=== PATIENT | female | born 1990 | race Caucasian/White ===

== ENCOUNTER 2022-01-29 16:16 | Emergency (ER) | payer OTHER, SELFPAY ==
[2022-01-29 16:27] VITALS: BP 132/88; PULSE 99; RESP 18; TEMP 36.3; O2SAT 100
[2022-01-29 17:20] LABS: Influenza A QL RT-PCR Negative (Negative); Influenza B QL RT-PCR Negative (Negative); RSV RNA, RT-PCR Negative (Negative); SARS-CoV-2 RNA PCR Negative
--- NOTE | 2022-01-29 19:54 | ED.GENADULT ---
HPI - General Adult General Chief complaint: Unspecified Stated complaint: flu/covid?? cant keep fluids down Time Seen by Provider: 01/29/22 19:43 History of Present Illness HPI narrative: Pt presents with nausea and vomiting for a couple of days. Pt denies fever or diarrhea or abdominal pain. Pt denies exposures. Pt feels lightheaded when she stands. Related Data Allergies Allergy/AdvReac Type Severity Reaction Status Date / Time No Known Allergies Allergy Unverified 06/16/11 20:10 Review of Systems Review of Systems: All systems reviewed & are unremarkable except as noted in HPI and below PMFSH Family History Family History (Updated 10/12/15 @ 23:21 by DOCTOR UNKNOWN) Grandparent Family history of thyroid disease Family history of obesity Family history of mental disorder Depression Asthma Family history of alcoholism Family history of heart disease in male family member before age 55 Diabetes mellitus Family history of migraine headaches Family history of eczema Family history of osteoarthritis Family history of coronary artery disease Family history of malignant neoplasm of urinary bladder Family history of malignant neoplasm Family history of diabetes mellitus in first degree relative Mother Patient's mother is in good health Carcinoma of colon Family history of diabetes mellitus in first degree relative Father Family history of diabetes mellitus in first degree relative Family history of lupus erythematosus Other Family history of malignant neoplasm of breast Family history of malignant neoplasm of ovary Social History Social History Smoking status: Never smoker Alcohol intake: current Exam Const: General: cooperative, no acute distress and alert Orientation/consciousness: patient oriented x3 Limitations: no limitations HENMT: Mouth: Yes Abnormal oral and palatal mucosa present (dry) Eyes: General: appearance normal, both eyes and all related structures Neck: Neck: normal visual inspection and full ROM Resp: Effort & Inspection: normal respiratory effort Auscultation: clear to auscultation bilaterally Cardio: Rate: regular rate Rhythm: regular rhythm GI: Inspection: normal to inspection Percussion: Yes normal to percussion Auscultation: normal bowel sounds Skin: General skin exam: normal color Neuro: General: patient oriented x3 Cranial nerves: Yes CN's II-XII intact bilaterally Speech: normal speech Gait exam (Neuro): Normal gait present Motor exam (neuro): 5/5 motor strength present throughout Extrem: General: normal to inspection and full ROM Psych: Appearance: grossly normal Mental Status: mental status grossly normal Speech and movement: Normal speech and movement present Affect: normal affect Attitude: cooperative Thought process: Normal thought process present Thought content: Yes Normal thought content present Course Vital Signs Vital signs: Vital Signs Temperature 97.4 F L 01/29/22 16:27 Pulse Rate 99 01/29/22 16:27 Respiratory Rate 18 01/29/22 16:27 Blood Pressure 132/88 01/29/22 16:27 Pulse Oximetry 100 01/29/22 16:27 Oxygen Delivery Room Air 01/29/22 16:27 Temperature 97.4 F L 01/29/22 16:27 Pulse Rate 99 01/29/22 16:27 Respiratory Rate 18 01/29/22 16:27 Blood Pressure 132/88 01/29/22 16:27 Pulse Oximetry 100 01/29/22 16:27 Oxygen Delivery Room Air 01/29/22 16:27 Medical Decision Making Vital Signs Vital Signs: Vital Signs Temperature 97.4 F L 01/29/22 16:27 Pulse Rate 99 01/29/22 16:27 Respiratory Rate 18 01/29/22 16:27 Blood Pressure 132/88 01/29/22 16:27 Pulse Oximetry 100 01/29/22 16:27 Oxygen Delivery Room Air 01/29/22 16:27 Temperature 97.4 F L 01/29/22 16:27 Pulse Rate 99 01/29/22 16:27 Respiratory Rate 18 01/29/22 16:27 Blood Pressure 132/88 01/29/22 16:27 Pulse Oximetry 100 01/29/22 16:27 Oxygen Delivery Room Air
[2022-01-29] MEDS: ONDANSETRON INJ 4 MG/2 ML VIAL IV PUSH (20:05)
[2022-01-29] MEDS: SODIUM CHLORIDE 0.9% IV 1,000 ML 999 ML IV CONT (20:05)
== END 2022-01-29 21:39 | disposition home or self-care (01) ==
PROVIDERS: Emergency Medicine; Emergency Provider Emergency Medicine; PCP Nurse Practitioner Adult Health
DX: K52.9 Noninfective gastroenteritis and colitis, unspecified (principal); Z20.822 Contact with and (suspected) exposure to COVID-19
CPT/HCPCS: 87637; 96361; 96374; 99284; J2405; J7030

== ENCOUNTER 2022-09-19 07:23 | Outpatient (CLI) | payer OTHER, SELFPAY ==
[2022-09-19 18:35] LABS: Hematocrit 46.9 % (37.0-47.0); Hemoglobin 14.9 g/dL (12.0-15.0); Mean Corpuscular HGB Conc 31.8 g/dl (32-36); Mean Corpuscular Hemoglobin 31.5 pg (26-34); Mean Corpuscular Volume 99.2 fl (80-100); Mean Platelet Volume 10.1 fl (7.4-10.4); Platelet Count Result 352 k/mm3 (150-375); Red Blood Count 4.73 M/mm3 (4.2-5.4); Red Cell Distribution Width 14.1 % (11.5-14.5); White Blood Count 8.7 K/mm3 (4.5-10.0)
[2022-09-19 18:41] LABS: Alanine Aminotransferase 27 U/L (6-35); Albumin Level 4.4 g/dL (3.5-5.1); Alkaline Phosphatase 70 U/L (38-126); Anion Gap 2 mmol/L (8-16); Aspartate Amino Transferase 71 U/L (14-36); Bilirubin,Total 0.6 mg/dL (0.2-1.3); Blood Urea Nitrogen 11 mg/dL (7-17); Calcium 9.3 mg/dL (8.4-10.2); Carbon Dioxide 34 mmol/L (22-30); Chloride 104 mmol/L (98-107); Cholesterol 163 mg/dL (0-200); Estimated Glomerular Filt Rate > 60; Glucose 97 mg/dL (65-110); HDL Direct 30 mg/dL; Potassium 4.7 mmol/L (3.4-5.0); Sodium 140 mmol/L (137-145); Triglycerides 133 mg/dL (<150)
[2022-09-19 18:55] LABS: LDL Cholesterol Direct 95 mg/dL
[2022-09-19 19:16] LABS: Thyroid Stimulating Hormone 0.732 uIU/mL (0.465-4.680)
[2022-09-19 19:19] LABS: Hemoglobin A1C 5.1 % (<5.7)
[2022-09-23 10:57] LABS: Insulin Level Total 24.8 uIU/mL (<=19.6)
== END 2022-09-19 07:24 | disposition home or self-care (01) ==
LOC: ANHBWCLAB 07:27
PROVIDERS: PCP Nurse Practitioner Adult Health; Visit Provider Nurse Practitioner Adult Health
DX: Z13.0 Encounter for screening for diseases of the blood and blood-forming organs and certain disorders involving the immune mechanism (principal); E66.9 Obesity, unspecified
CPT/HCPCS: 36415; 80053; 80061; 83036; 83525; 84443; 85027

== ENCOUNTER 2023-07-20 15:02 | Outpatient (CLI) | payer OTHER, SELFPAY ==
--- NOTE | ~2023-07-20 | XR_ITS ---
EXAMINATION: XR hand RT 2V, XR hand LT 2V, XR wrist RT 2V, XR wrist LT 2V DATE: 07/20/2023 15:39 INDICATION: Unspecified joint pain at the bilateral hands and wrists. TECHNIQUE: 1. Posteroanterior and lateral views of the left wrist were obtained. 2. Dorsal palmar and lateral views of the left hand were obtained. 3. Posteroanterior and lateral views of the right wrist were obtained. 4. Dorsal palmar and lateral views of the right hand were obtained. COMPARISON: None. FINDINGS: Alignment of the bilateral hands and wrists is normal. No fracture identified. Joint spaces are radhames l. No cortical erosions or periosteal reaction. Bone island along the volar sided cortex of the right second distal phalanx. No focal soft tissue swelling. IMPRESSION: 1. Negative bilateral hand and wrist radiographs. Reviewed, dictated and finalized at location A. IMPRESSION: 1. Negative bilateral hand and wrist radiographs. IMPRESSION: 1. Negative bilateral hand and wrist radiographs. IMPRESSION: 1. Negative bilateral hand and wrist radiographs.
--- NOTE | ~2023-07-20 | XR_ITS ---
EXAMINATION: XR ankle LT 2V, XR foot LT 2V, XR ankle RT 2V, XR foot RT 2V DATE: 07/20/2023 15:39 INDICATION: Multiple joint pain at the bilateral feet and ankles TECHNIQUE: 1. Anteroposterior and lateral view of the left ankle were obtained. 2. Dorsoplantar and lateral views of the left foot were obtained. 3. Anteroposterior and lateral view of the right ankle were obtained. 4. Dorsoplantar, two oblique and lateral views of the right foot were obtained. COMPARISON: None. FINDINGS: Left foot and ankle: Alignment is normal. No fracture. Bone island at the distal left tibial metaphysis. Joint spaces are well maintained. No erosions or periosteal reaction. No ankle joint effusion. Small Achilles and plan tar calcaneal spurs. The soft tissues are unremarkable. Right foot and ankle: Alignment is normal. No fracture. Bone island at the head of the right first proximal phalanx. Joint spaces are well maintained. No erosions or periosteal reaction. No ankle joint effusion. Small enthes opathic ossification at the distal Achilles tendon. The soft tissues are unremarkable. IMPRESSION: 1. Chronic bilateral calcaneal enthesopathy with small left Achilles and plantar calcaneal spurs and small enthesopathic ossicle at the distal right Achilles tendon. Reviewed, dictated and finalized at location A. IMPRESSION: 1. Chronic bilateral calcaneal enthesopathy with small left Achilles and planta r calcaneal spurs and small enthesopathic ossicle at the distal right Achilles tendon. IMPRESSION: 1. Chronic bilateral calcaneal enthesopathy with small left Achilles and planta r calcaneal spurs and small enthesopathic ossicle at the distal right Achilles tendon. IMPRESSION: 1. Chronic bilateral calcaneal enthesopathy with small left Achilles and planta r calcaneal spurs and small enthesopathic ossicle at the distal right Achilles tendon.
--- NOTE | ~2023-07-20 | XR_ITS ---
EXAMINATION: XR sacroiliac joints min 3V DATE: 07/20/2023 15:39 INDICATION: Pain in unspecified joint. TECHNIQUE: 3 views of the sacroiliac joints were obtained. COMPARISON: None. FINDINGS: Bone alignment is normal. No fracture. There is moderate lumbar spondylosis. The sacroiliac joints are normal. There is an intrauterine device in expected position. IMPRESSION: 1. Normal sacroiliac joints. Reviewed, dictated and finalized at location A.
== END 2023-07-20 15:03 ==
PROVIDERS: PCP Internal Medicine; Visit Provider Internal Medicine
DX: M25.50 Pain in unspecified joint (principal); M79.10 Myalgia, unspecified site; R53.81 Other malaise; M77.32 Calcaneal spur, left foot; M77.31 Calcaneal spur, right foot
CPT/HCPCS: 72202; 73100; 73120; 73600; 73620

== ENCOUNTER 2024-05-10 08:44 | Outpatient (CLI) | payer OTHER, SELFPAY ==
--- NOTE | ~2024-05-10 | XR_ITS ---
Right elbow Technique: AP, oblique, and lateral views were obtained. Clinical History: Pain Findings: No acute fracture or dislocation is seen. Osseous alignment is anatomic. Joint spaces are p reserved. There is no displacement of the fat pads, and soft tissues are unremarkable. Impression: Unremarkable radiographs. Reviewed, dictated and finalized at [facility]. ICAL DIETETIC TECHNICIAN Impression: Unremarkable radiographs.
--- OUTSIDE RECORDS SUMMARY | 2024-05-10 09:10 | XMS_ITS | Clinical Summary ---
Author Organization [facility] Address [facility] [place] [address] Care Team Providers Care Supervisor Transcribing Operators Name Role Phone Nigel Schroeder MD Unavailable [phone] None, Provider Primary Care Provider Unavaila ble Allergies Active Allergy Reactions Criticality Noted Date Comments Topiramate Headache,Vomiting Low 09/23/2018 Medications SUMAtriptan 100 MG tablet Take 1 tablet by mouth daily as needed. 2 07/29/2018 Active levonorgestrel 19.5 MG IUD 02/24/2020 Active predniSONE 20 MG tabletIndication s:Acute bilateral low back pain with bilateral sciatica 2 tabs po today, then 2 tabs po qam x 3 days, then 1 tab po qam x 3 days, then 1/2 tab po qam x 4 days. 13 tablet 07/06/2020 Active Active Problems Problem Noted Date Diagnosed Date BMI 45.0-49.9, adult ([facility]) 0 Scoliosis 08/31/2019 Polycystic ovary syndrome 08/31/2019 Osteoarthritis of back 08/31/2019 History of degenerative disc disease 08/31/2019 Bulging lumbar disc 08/31/2019 Disc narrowing 08/31/2019 External hemorrhoids 04/20/2019 Assessment & Plan (04/20/2019 2:39 PM TRIBAL DELEGATE): Will try hydrocortisone, lidocaine cream, con't sitz bath. If no improvement will refer to GI/gen surg Fibrous dysplasia (monostotic), unspecified site 08/18/2018 Overview (08/18/2018): Of Skull per Dr. Roca Obesity, unspecified classif ication, unspecified obesity type, unspecified whether serious comorbidity present 06/23/2018 Excessive thirst 06/23/2018 Diaphoresis 06/23/2018 Anxiety 05/19/2018 Assessment & Plan (03/25/2019 1:07 PM TRIBAL DELEGATE): Will try increasing the amitriptyline as has helped and no side effects. If no improvement she is to let me know and we can consider adding buspar. Also discussed seeing therapist and trying mindfulness as coping mechanism for stress Assessment & Plan (01/04/2019 9:43 AM CDT): Some improvement but not at goal. Will try inc to 25mg. She has had side effects with other SSRI/SNRIs so will try optimizing this. Assessment & Plan (12/01/2018 1:20 PM CDT): Did not do well with sertraline. Will try amitriptyline for both migraines and anxiety. Assessment & Plan (05/19/2018 4:27 PM TRIBAL DELEGATE): Try sertraline daily as had only been using PRN. Will FU in 1 month. Polyostotic fibrous dysplasia (HHS/HCC) Assessment & Plan (05/19/2018 4:29 PM TRIBAL DELEGATE): Reports not [place] syndorm because no cafe au lait spots. Never has gotten period because started on progesterone shots to help with high bone density. Reports she has supposed to have FU dexas or other scans but has not seen specialist since 18. Was previously seeing a neurologist. Chronic migraine Assessment & Plan (01/04/2019 9:43 AM CDT): Much better control. Will inc to 25mg though more for anxiety Assessment & Plan (12/01/2018 1:16 PM CDT): Will try amitriptyline low dose as may help with both anxiety and migraines. New referral placed for neuro to see if can find someone in network Resolved Problems Problem Noted Date Diagnosed Date Resolved Date Serotonin withdrawal syndrom e, initial encounter 06/25/2018 07/05/2020 Immunizations Name Administration Dates Next Due Fluzone Adult - >Age 3 (Prefilled Syringe) 01/14 Influenza Adult (Generic) 01/12/2021 MODERNA COVID-19 (12+) MRNA, LNP-S, PF, 100 MCG/ 0.5 ML DOSE 04/11/2020,03/14/2020 Family History Medical History Relation Comments Arthritis Father degenerative disc disease Father osteoarthristis Father sleep apnea Father Arthritis Maternal Grandfather Diabetes Maternal Grandfather Hypertension Maternal Grandfather Arthritis Maternal Grandmother Cancer Maternal Grandmother mouth and m elanoma Depression Maternal Grandmother Diabetes Maternal Grandmother Hypertension Maternal Grandmother Stroke Maternal Grandmother Arthritis Mother Diabetes Mother Lupus Mother systematic eryth ematosis cervical dysplasia Mother osterarthritis Mother pcos Mother sjorgen Mother Alcohol Abuse Paternal Grandfather Arthritis Paternal Grandfather Arthritis Paternal Grandmother Heart Disease Paternal Grandmother mitrial mehdi ve prolapse Relation Status Comments Brother Alive Father Alive Maternal Grandfather Alive Maternal Grandmother (Age 68) Mother Alive Paternal Grandfather Alive Paternal Grandmother Alive Social History Tobacco Use Types Packs/Day Years Used Date Smoking Tobacco: Never Smokeless Tobacco: Never Tobacco Cessation:Counseling Given: Yes Alcohol Use Standard Drinks/Week Comments Yes 0 (1 standard drink = 0.6 oz pur e alcohol) social AUDIT-C Answer Date Recorded Frequency of Alcohol Consumption 2-4 times a thu10/18/2018 Average Number of Drinks Not on file 019 Frequency of Binge Drinking Not on file 0807/2018 PHQ-2 Answer Date Recorded PHQ-2 Score - If the patient scores above 3, please move on to questions 3-9 0 09/28/2019 Education Answer Date Recorded What is the highest level of school you have completed or the highest degree you have received? 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 Not on file Not on file Not on file Last Filed Vital Signs Vital Sign Reading Time Taken Comments Blood Pressure 108/80 07/06/2020 11:38 AM CDT Pulse 101 07/06/2020 11:38 AM CDT Temperature 36.9 C (98.5 F) 07/06/2020 11:38 AM CDT Respiratory Rate 20 07/06/2020 11:38 AM CDT Oxygen Saturation 98% 07/06/2020 11:38 AM CDT Inhaled Oxygen Concentration - - Weight 128.8 kg (284 lb) 07/06/2020 11:38 AM CDT Height 162.6 cm (5' 4 ) 07/06/2020 11:38 AM CDT Body Mass Index 48.75 07/06/2020 11:38 AM CDT Plan of Treatment Health Maintenance Due Date Last Done Comments Cervical Cancer Screening Pa p Smear (Age 30 to 64) Every 3 Years 1990 Annual Physical 1993 Hepatitis C 2008 DTaP, Tdap and Td Vaccines ( 1 - Tdap) 2009 Hepatitis B Vaccines (1 of 3 - 19+ 3-dose series) 2009 Cervical Cancer Screening Pa p with HPV Testing (Age 30 to 64) Every 5 Years 2020 Cervical Cancer Screening wi HPV 2020 COVID-19 Vaccine (2023-2 5 season) 2023 01/12/2021, 04/11/2020, 03/14/2020 Influenza Adult (#1) 2023 01/12/2021, 01/14/2017 HPV Vaccines Aged Out No longer eligi ble based on patient's age to complete this topic Meningococcal B Vaccine Aged Out No l onger eligible based on patient's age to complete this topic Meningococcal Vaccine Aged Out No michael saul eligible based on patient's age to complete this topic Pneumococcal Vaccine: Pediatrics (0 to 5 Years) and At-Risk Patients (6 to 64 Years) Aged Out No longer eligible b ased on patient's age to complete this topic RSV Immunizations Under 20 Months Aged Out No longer eligible b ased on patient's age to complete this topic Insurance [facility] Care Teams Supervisor Transcribing Operators Relationship Specialty Start Date End Date None, Provider, PCP - General UNKNOWN PHYSICIAN SPECIALTY 02/13/23 Nigel Schroeder MD Three [facility]. [address] [address] [employer] Sr Engineer CARDIOVASCULAR DISEASE 09/03/18
--- OUTSIDE RECORDS SUMMARY | 2024-05-10 09:10 | XMS_ITS | Encounter Summary ---
Author Organization [facility] Address [address] [place] [address] Care Team Providers Care Straightening Roll Operator Name Role Phone Nigel Schroeder MD Unavailable [phone] Ailyn Brice MD Primary Care Provider [phone] None, Provider Primary Care Provider Unavaila ble Encounter Details Date Type Department Care Team (Late st Contact Info) Description 07/30/2020 MyChart Message Enc [facility] W[facility] [address] [place] [address] [place] [address] [place] [address] RE: Follow Up/Update Social History Tobacco Use Types Packs/Day Years Used Date Smoking Tobacco: Never Smokeless Tobacco: Never Alcohol Use Standard Drinks/Week Comments Yes 0 (1 standard drink = 0.6 oz pur e alcohol) social AUDIT-C Answer Date Recorded Frequency of Alcohol Consumption 2-4 times a thu10/18/2018 Average Number of Drinks Not on file 019 Frequency of Binge Drinking Not on file 07/2018 PHQ-2 Answer Date Recorded PHQ-2 Score - [...] Sex Assigned at Female 01/24/2019 9:38 AM ARCHEOLOGIST CLASSICAL Legal Sex Female 10:22 PM ARCHEOLOGIST CLASSICAL Gender Identity Female 01/24/2019 9:38 AM ARCHEOLOGIST CLASSICAL Sexual Orientation Straight 01/24/2019 9: 38 AM ARCHEOLOGIST CLASSICAL 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 No / Unsure 07/06/2020 11:24 AM CDT documented as of this encounter Progress Notes * Nikki Hdez MA - 07/30/2020 3:29 PM CDT Please advise documented in this encounter Plan of Treatment Not on file documented as of this encounter Visit Diagnoses Not on filedocumented in this encounter Care Teams Straightening Roll Operator Relationship Specialty Start Date End Date Ailyn Brice MD [facility]. [address] [address] PCP - General INTERNAL MEDICINE 08/31/19 02/12/23 None, Afshan, PCP - General UNKNOWN PHYSICIAN SPECIALTY 02/13/23 Nigel Schroeder MD [facility]. [facility] [address] [place] [address] [place] [employer] Sales Director CARDIOVASCULAR DISEASE 09/03/18 documented as of this encounter
--- OUTSIDE RECORDS SUMMARY | 2024-05-10 09:10 | XMS_ITS | Encounter Summary ---
Author Organization [facility] Address [address] [place], [place] [id number] Care Team Providers Care Reeler Operator Name Role Phone Nigel Schroeder MD Unavailable [phone] Ailyn Brice MD Primary Care Provider [phone] None, Provider MD Primary Care Provider Unavaila ble Encounter Details Date Type Department Care Team (Late st Contact Info) Description 07/27/2020 MyChart Message Enc [facility] Family & Internal Medicine [facility] [id number] [place] [phone] Pollo Klein MD [address] [address] RE: Follow Up/Update Social History Tobacco Use [...] Sex Assigned at Female 01/24/2019 9:38 AM DOCK SUPERINTENDENT Legal Sex Female 10:22 PM DOCK SUPERINTENDENT Gender Identity Female 01/24/2019 9:38 AM DOCK SUPERINTENDENT Sexual Orientation Straight 01/24/2019 9: 38 AM DOCK SUPERINTENDENT Occupation Industry Job Start Date Job End Date [place] Not on file Not on file Not on file COVID-19 Exposure Response Date Recorded In the last month, have you been in contact with someone who was confirmed or suspected to have Coronavirus / COVID-19? No / Unsure 07/06/2020 11:24 AM CDT documented as of this encounter Progress Notes * Nikki Hdez MA - 07/30/2020 2:31 PM CDT Please see message from patient * Montserrat Lowe RN - 07/30/2020 2:10 PM CDT Please have Dr. Robertson advise. * Pollo Klein MD - 07/30/2020 9:53 AM CDT I recommend patient consult her PCP, as she may benefit from a round of physical therapy. * Montserrat Lowe RN - 07/30/2020 9:07 AM CDT Please advise. documented in this encounter Plan of Treatment Not on file documented as of this encounter Visit Diagnoses Not on filedocumented in this encounter Care Teams Reeler Operator Relationship Specialty Start Date End Date Ailyn Brice MD [address] [address] PCP - General INTERNAL MEDICINE 08/31/19 02/12/23 None, Provider, PCP - General UNKNOWN PHYSICIAN SPECIALTY 02/13/23 Nigel Schroeder MD Three [facility]. [address] [address] [place] Head Scorer CARDIOVASCULAR DISEASE 09/03/18 documented as of this encounter
--- OUTSIDE RECORDS SUMMARY | 2024-05-10 09:10 | XMS_ITS | Encounter Summary ---
Author Organization [facility] Address [address] [place] [address] Care Team Providers Care Ict Development Manager Name Role Phone Nigel Schroeder MD Unavailable [phone] Ailyn Brice MD Primary Care Provider [phone] None, Provider Primary Care Provider Unavaila ble Encounter Details Date Type Department Care Team (Late st Contact Info) Description 09/18/2021 [employer] Message [place] [facility] [employer] Provider Patient Amendment Request Social History Tobacco Use Types Packs/Day Years [...] Sex Assigned at Female 01/24/2019 9:38 AM BIOLOGY LECTURER Legal Sex Female 10:22 PM BIOLOGY LECTURER Gender Identity Female 01/24/2019 9:38 AM BIOLOGY LECTURER Sexual Orientation Straight 01/24/2019 9: 38 AM BIOLOGY LECTURER 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 [address] [address] PCP - General INTERNAL MEDICINE 08/31/19 02/12/23 None, Provider, PCP - General UNKNOWN PHYSICIAN SPECIALTY 02/13/23 Nigel Schroeder MD Three [facility]. [address] [address] [place] Enrober Tender CARDIOVASCULAR DISEASE 09/03/18 documented as of this encounter
--- OUTSIDE RECORDS SUMMARY | 2024-05-10 09:10 | XMS_ITS | Encounter Summary ---
Author Organization [facility] Address [address] [place] [address] Care Team Providers Care Ese Teacher Name Role Phone Denita Aguila MD Primary Care Provider Unavailab Nigel Zabala MD Unavailable [phone] Ailyn Brice MD Primary Care Provider [phone] None, Provider Primary Care Provider Unavaila ble Encounter Details Date Type Department Care Team (Late st Contact Info) Description 10/06/2018 Hospital Orders Only [facility] Cardiopulmonary Services [address] [place] [address] Nigel Schroeder MD Three [facility]. [place] [address] [place] [address] Social History Tobacco Use Types Packs/Day Years Used Date Smoking Tobacco: Never Smokeless Tobacco: Never Alcohol Use Standard Drinks/Week Comments Yes 0 (1 standard drink = 0.6 oz pur e alcohol) social Comments No Sex and Gender Information Value Date Recorded Sex Assigned at Female 01/24/2019 9:38 AM DOCUMENT ADVISOR Legal Sex Female 10:22 PM DOCUMENT ADVISOR Gender Identity Female 01/24/2019 9:38 AM DOCUMENT ADVISOR Sexual Orientation Straight 01/24/2019 9: 38 AM DOCUMENT ADVISOR documented as of this encounter Plan of Treatment Not on file documented as of this encounter Visit Diagnoses Not on filedocumented in this encounter Care Teams Ese Teacher Relationship Specialty Start Date End Date Denita Aguila MD PCP - General INTERNAL MEDICINE 05/19/18 08/30/19 Ailyn Brice MD Three [facility]. [address] [address] PCP - General INTERNAL MEDICINE 08/31/19 02/12/23 None, Provider, PCP - General UNKNOWN PHYSICIAN SPECIALTY 02/13/23 [facility] [address] [address] [place] Tech Brazer Tester CARDIOVASCULAR DISEASE 09/03/18 documented as of this encounter
== END 2024-05-10 08:45 | disposition home or self-care (01) ==
LOC: CHSIMG 08:46
PROVIDERS: PCP Nurse Practitioner Adult Health; Visit Provider Orthopaedic Surgery
DX: M25.521 Pain in right elbow (principal)
CPT/HCPCS: 73080

== ENCOUNTER 2025-03-04 08:05 | Outpatient (CLI) | payer OTHER, SELFPAY ==
--- OUTSIDE RECORDS SUMMARY | 2024-10-20 10:30 | XMS_ITS ---
Author Organization [facility] Address [address], [place] [address] Care Team Providers Care Medical/Surgery Registered Nurse Name Role Phone Alma Fernandez Unavailable [phone] Allergies Allergen (clinical drug ingredient) Drug/Non Drug Allergy documented on EMR Reaction Allergy Type Onset Date Status metoprolol Toprol XL Unknown Drug Allergy Active Medications Medication SIG (Take, Route, Frequency, Duration) Notes Start Date End Date Status Cimzia (2 Syringe) 200 MG/ML Inject the contents of TWO prefilled syringes (400 mg) subcutaneously in the abdomen or thigh, rotating sites every 4 weeks; Duration: 84 days 10/21/2024 01/13/2025 Active Cimzia (2 Syringe) 200 MG/ML inject 2 mL Subcutaneous every 4 weeks Active Zepbound 2.5 MG/0.5ML 0.5 mL Subcutaneous weekly Active Ubrelvy 100 MG 1 tablet as needed, may take second dose at least 2 hours after first dose up to 2 tablets per day as needed Orally Once a day Active CeleBREX 200 MG 1 capsule as needed Orally Twice daily Active Social History Tobacco Use: Social History Observation Description Date Details (start date - stop date) Never Smoker NA - NA Sex Assigned At : Social History Observation Description Sex Assigned At Unknown Tobacco Control (Standard) Question Answer Notes Tobacco use: Nonsmoker Problems Problem Type SNOMED Code ICD Code Onset Dates Problem Status W/U Status Risk Notes Problem Rheumatoid arthritis (57244802) Rheumatoid arthritis, involving unspecified site, unspecified whether rheumatoid factor present (M06.9) Active confirmed Problem Rheumatoid arthritis (90367633) Rheumatoid arthritis (M06.9) Active confirmed Problem Ankylosing spondylitis (5664158) Ankylosing spondylitis (M45.9) Active confirmed Problem Plantar fasciitis (084250739) Plantar fasciitis (M72.2) Active confirmed Problem Degenerative joint disease (659538357) Degenerative joint disease (M19.90) Active confirmed Problem Osteoarthritis (008149075) Osteoarthritis (M19.90) Active confirmed Problem Hypertension (77808191) Hypertension (I10) Active confirmed Problem migraine (disorder) (82541285) Migraines (G43.909) Active confirmed Vital Signs Height 64 in 10/20/2024 Weight 222 lbs 10/20/2024 BMI 38.1 kg/m2 10/20/2024 Height-cm 162.56 cm 10/20/2024 Weight-kg 100.7 kg 10/20/2024 Encounters Encounter Location Date Provider Diagnosis [address] [place], [place] [id number] 10/20/2024 Alma Fernandez Rheumatoid arthritis, involving unspecified site, unspecified whether rheumatoid factor present M06.9 ; Other penitentiary (current) drug therapy Z79.899 and Routine health maintenance Z00.00 Assessments Encounter Date Diagnosis (ICD Code) Assessment Notes Treatment Notes Treatment Clinical Notes Section Notes 10/20/2024 Rheumatoid arthritis, involving unspecified site, unspecified whether rheumatoid factor present (ICD-10 - M06.9) Ms. Davies is a 34 year-old female with rheumatoid arthritis, currently managed by Dr. Cuadra. At this time, patient will continue Cimzia. Patient will be monitored penitentiary for symptom control and side effects. SCREENING: Baseline CDAI: 14 Current CDAI: 4 LABS: QuantiFERON-TB Gold (08/01/24): Negative Hepatitis B Surface Antigen (07/18/23): NR Rheumatoid arthritis is chronic in nature with periods of remission and flares. Flares can be triggered by stress, infections, certain medications, and alcohol. Cimzia risks include worsening of disease, immunosuppressio n, allergic reactions and infections. The patient understands that monitoring is required including a PPD at baseline and must alert us or the primary physician if symptoms of infection or other concerning signs are noted. 10/20/2024 Other exterminator (current) drug therapy (ICD-10 - Z79.899) When on high-risk medications, patient must be vigilant about any new symptoms and understand the risks and side effects of their treatment. Biologic/small molecule medications can have significant side effects that may require blood test monitoring on a regular basis. Patient to contact providers for fever, chills, night sweats, malaise, abdominal pain, weakness, fatigue, headaches, infections, difficulty breathing or persistent cough, new skin lesions, or other unusual symptoms. 10/20/2024 Routine health maintenance (ICD-10 - Z00.00) https://www.cdc. gov/vaccines/odette edules/downloads /adult/adult-com bined-schedule.p df Plan Of Treatment Medication Medication Name Sig Start Date Stop Date Notes Cimzia (2 Syringe) 200 MG/ML Inject the contents of TWO prefilled syringes (400 mg) subcutaneously in the abdomen or thigh, rotating sites every 4 weeks; Duration: 84 days 10/21/2024 01/13/2025 Treatment Notes Assessment Notes Rheumatoid arthritis, involv ing unspecified site, unspecified whether rheumatoid factor present Ms. Davies is a 34 year-old female with rheumatoid arthritis, currently managed by Dr. Cuadra. At this time, patient will continue Cimzia. Patient will be monitored penitentiary for symptom control and side effects. SCREENING: Baseline CDAI: 14 Current CDAI: 4 LABS: QuantiFERON-TB Gold (08/01/24): Negative Hepatitis B Surface Antigen (07/18/23): NR Rheumatoid arthritis is chronic in nature with periods of remission and flares. Flares can be triggered by stress, infections, certain medications, and alcohol. Cimzia risks include worsening of disease, immunosuppression, allergic reactions and infections. The patient understands that monitoring is required including a PPD at baseline and must alert us or the primary physician if symptoms of infection or other concerning signs are noted. Other penitentiary (current) drug therapy W hen on high-risk medications, patient must be vigilant about any new symptoms and understand the risks and side effects of their treatment. Biologic/small molecule medications can have significant side effects that may require blood test monitoring on a regular basis. Patient to contact providers for fever, chills, night sweats, malaise, abdominal pain, weakness, fatigue, headaches, infections, difficulty breathing or persistent cough, new skin lesions, or other unusual symptoms. Routine health maintenance https://www.c dc.gov/vaccines/schedules/ramona nloads/adult/wldme-jldqwggw-ybkautee.pdf Progress Notes * KHADIJAH DAVIESHELDOB:[birth year] (34 yo F)Acc No.[id number]:10/20/2024 Patient: EDU PERDOMO Provider: Karri Fernandez :1990 A ge:34 Y S ex:Female Date:10/20/2024 Address:[address] [place] [address] Subjective: * Chief Complaints: * * HPI: T elemedicine: Ms. Davies is a 34-year-old female with rheumatoid arthritis, currently managed by Dr. Cuadra. Patient's past medical history is notable for ankylosing spondylitis, plantar fasciitis, degenerative joint disease, osteoarthritis, hypertension, and migraines. Family history notable for ankylosing spondylitis, SLE, MS and ALS. The patient reports joint pain, swelling, and stiffness specifically in her hands, lower back, and hips. Previously, the patient has tried and failed Simponi, Humira, Enbrel, Leflunomide, Azathioprine, Medrol, Baclofen, Duloxetine, Lyrica, Celebrex, Tylenol, Motrin and Aleve. Patient has not used MTX in the past due to being of reproductive age. She is avoiding Hydroxychloroquine due to eye issues. She has been established on Cimzia since October 2023 and reports good symptom control, without any adverse effects. The patient does not occasionally take OTC meds. There are no reports of recent hospitalizations, ER or urgent care visits in the past six months. Patient was called to verify their medical status and their prescription status. At this time, there are no changes to our prescription plans. [facility] is assisting as a specialty team in monitoring their health in consult with the patient's claim processing specialist. Biologic/small molecule agents affect human immunology can put patients at risk for various infections and malignancies. Proper monitoring with lab tests and an updated vaccination profile can minimize these risks. A [facility] merchandise flow team leader will be available to the patient for medication management. * Medical History: R heumatoid arthritis, Ankylosing spondylitis, Plantar fasciitis, Degenerative joint disease, Osteoarthritis, Hypertension, Migraines. * Hospitalization/Major Diagno stic Procedure: D enies Past Hospitalization. * Family History: F ather: ALS. (+) family history o f rheumatologic disorders on maternal and paternal side, including ankylosing spondylitis, SLE and MS. * Social History: T obacco Use: T obacco Control (Standard) T obacco use: N onsmoker * Medications: T aking Cimzia (2 Syringe) 200 MG/ML Prefilled Syringe Kit inject 2 mL Subcutaneous every 4 weeks , Taking Zepbound 2.5 MG/0.5ML Solution Auto-injector 0.5 mL Subcutaneous weekly , Taking Ubrelvy 100 MG Tablet 1 tablet as needed, may take second dose at least 2 hours after first dose up to 2 tablets per day as needed Orally Once a day , Taking CeleBREX 200 MG Capsule 1 capsule as needed Orally Twice daily , Medication List reviewed and reconciled with the patient * Allergies: T oprol XL. Objective: * Vitals: W t:222lbs, Wt-k.7 kg, Ht: 64 in, Ht-cm: 162.56 cm, BMI:38.1Index, Body Surface Area: 2.13. Assessment: * Assessment: 1. R heumatoid arthritis, involving unspecified site, unspecified whether rheumatoid factor present - M06.9 2 . O ther penitentiary (current) drug therapy - Z79.899 ?3. R [facility] health maintenance - Z00.00 Plan: * Treatment: 2. O ther exterminator (current) drug therapy Notes:When on high-risk medications, patient must be vigilant about any new symptoms and understand the risks and side effects of their treatment. Biologic/small molecule medications can have significant side effects that may require blood test monitoring on a regular basis. Patient to contact providers for fever, chills, night sweats, malaise, abdominal pain, weakness, fatigue, headaches, infections, difficulty breathing or persistent cough, new skin lesions, or other unusual symptoms. 3. R [facility] health maintenance Notes:https://www.cdc.gov/vaccines/sched ules/downloads/adult/ivtzl-szstaaeo-cuisv ule.pdf * Billing Information: * Visit Code: * Procedure Codes: Care Plan Details* * Electronic signature of DARWIN Carbajal on 03/04/2025 at 08:10 AM SUPPORT MERCHANDISER Sign off status: Pending * Provider: Karri Fernandez Date: 0 10/20/2024 Generated for Bartolo kidd/Tomas/eTransmitting on: 1 05/05/2024 08:10 AM SUPPORT MERCHANDISER History and Physical Notes * HPI (History of Present Illness) Category Sub-Category Detail Notes Category Not es Telemedicine Ms. Davies is a 34-year-old female with rheumatoid arthritis, currently managed by Dr. Cuadra. Patient's past medical history is notable for ankylosing spondylitis, plantar fasciitis, degenerative joint disease, osteoarthritis, hypertension, and migraines. Family history notable for ankylosing spondylitis, SLE, MS and ALS. The patient reports joint pain, swelling, and stiffness specifically in her hands, lower back, and hips. Previously, the patient has tried and failed Simponi, Humira, Enbrel, Leflunomide, Azathioprine, Medrol, Baclofen, Duloxetine, Lyrica, Celebrex, Tylenol, Motrin and Aleve. Patient has not used MTX in the past due to being of reproductive age. She is avoiding Hydroxychloroquine due to eye issues. She has been established on Cimzia since October 2023 and reports good symptom control, without any adverse effects. The patient does not occasionally take OTC meds. There are no reports of recent hospitalizations, ER or urgent care visits in the past six months. Patient was called to verify their medical status and their prescription status. At this time, there are no changes to our prescription plans. [facility] is assisting as a specialty team in monitoring their health in consult with the patient's claim processing specialist. Biologic/small molecule agents affect human immunology can put patients at risk for various infections and malignancies. Proper monitoring with lab tests and an updated vaccination profile can minimize these risks. A [facility] merchandise flow team leader will be available to the patient for medication management.
--- NOTE | ~2025-03-04 | MR_ITS ---
EXAMINATION: MR elbow RT wo con DATE: 03/04/2025 09:12 INDICATION: One year of right elbow pain now with limited range of motion TECHNIQUE: Magnetic resonance imaging (MRI) of the right elbow was performed without intravenous contrast. Sequences included coronal, axial, and sagittal PD-weighted FS FSE and coronal, axial, and sagittal PD-weighted FSE. COMPARISON: Radiographs dated 05/10/2024 FINDINGS: Osseous/other: Normal alignment. Normal marrow signal with no marrow edema, fracture, osteochondral lesion or abnormal marrow replacing process. Tendons: Triceps, biceps brachii and brachialis tendons are normal. Common flexor tendon wad is normal. Mild tendinopathy of the common extensor tendon wad. There is a very small 2 x 3 mm fluid signal intensity partial-thickness tear defect at the lateral epicondylar origin of the common extensor tendon wad. Ligaments: The medial and lateral collateral ligament complexes are normal. Cubital tunnel: Cubital tunnel is unremarkable with normal ulnar nerve. Fluid: Physiologic amount of fluid the elbow joint. IMPRESSION: 1. Mild tendinopathy with very small partial-thickness tear at the lateral epicondylar origin of the common extensor tendon wad. Reviewed, dictated and finalized at location A. GING EDITOR IMPRESSION: 1. Mild tendinopathy with very small partial-thickness tear at the lateral epic ondylar origin of the common extensor tendon wad.
--- OUTSIDE RECORDS SUMMARY | 2025-03-04 08:10 | XMS_ITS | Patient Health Record ---
Author Organization [facility] Address [address], [place] [address] Care Team Providers Care Clerical Aide Name Role Phone Alma Fernandez Unavailable [phone] Allergies Allergen (clinical drug ingredient) Drug/Non Drug Allergy documented on EMR Reaction Allergy Type Onset Date Status metoprolol Toprol XL Unknown Drug Allergy Active Reason For Referral No Information Medications Medication SIG (Take, Route, Frequency, Duration) Notes Start Date End Date Status Cimzia (2 Syringe) 200 MG/ML inject 2 mL Subcutaneous every 4 weeks Active Zepbound 2.5 MG/0.5ML 0.5 mL Subcutaneous weekly Active Ubrelvy 100 MG 1 tablet as needed, may take second dose at least 2 hours after first dose up to 2 tablets per day as needed Orally Once a day Active CeleBREX 200 MG 1 capsule as needed Orally Twice daily Active Cimzia (2 Syringe) 200 MG/ML Inject the contents of TWO prefilled syringes (400 mg) subcutaneously in the abdomen or thigh, rotating sites Subcutaneous every 4 weeks; Duration: 84 days 10/21/2024 07/26/2025 Active Social History Tobacco Use: Social History Observation Description Date Details (start date - stop date) Never Smoker NA - NA Sex Assigned At : Social History Observation Description Sex Assigned At Unknown Tobacco Control (Standard) Question Answer Notes Tobacco use: Nonsmoker Problems Problem Type SNOMED Code ICD Code Onset Dates Problem Status W/U Status Risk Notes Problem Rheumatoid arthritis (51352980) Rheumatoid arthritis, involving unspecified site, unspecified whether rheumatoid factor present (M06.9) Active confirmed Problem Plantar fasciitis (433882642) Plantar fasciitis (M72.2) Active confirmed Problem Hypertension (73771317) Hypertension (I10) Active confirmed Problem Osteoarthritis (710757001) Osteoarthritis (M19.90) Active confirmed Problem migraine (disorder) (12742733) Migraines (G43.909) Active confirmed Problem Ankylosing spondylitis (7134644) Ankylosing spondylitis (M45.9) Active confirmed Problem Degenerative joint disease (564881191) Degenerative joint disease (M19.90) Active confirmed Problem Rheumatoid arthritis (74608602) Rheumatoid arthritis (M06.9) Active confirmed Vital Signs Height-cm 162.56 cm 10/20/2024 Weight-kg 100.7 kg 10/20/2024 Height 64 in 10/20/2024 Weight 222 lbs 10/20/2024 BMI 38.1 kg/m2 10/20/2024 Encounters Encounter Location Date Provider Diagnosis [address] [place] [place], [place] [id number] 10/20/2024 Alma Fernandez Rheumatoid arthritis, involving unspecified site, unspecified whether rheumatoid factor present M06.9 ; Other longterm (current) drug therapy Z79.899 and Routine health maintenance Z00.00 [address] [place], [place] [id number] 02/08/2025 Alma Fernandez Rheumatoid arthritis, involving unspecified site, unspecified whether rheumatoid factor present M06.9 Assessments Encounter Date Diagnosis (ICD Code) Assessment Notes Treatment Notes Treatment Clinical Notes Section Notes 10/20/2024 Rheumatoid arthritis, involving unspecified site, unspecified whether rheumatoid factor present (ICD-10 - M06.9) Ms. Davies is a 34 year-old female with rheumatoid arthritis, currently managed by Dr. Cuadra. At this time, patient will continue Cimzia. Patient will be monitored longterm for symptom control and side effects. SCREENING: [...] infection or other concerning signs are noted. 02/08/2025 Rheumatoid arthritis, involving unspecified site, unspecified whether rheumatoid factor present (ICD-10 - M06.9) 10/20/2024 Other longterm (current) drug therapy (ICD-10 - Z79.899) When [...] edules/downloads /adult/adult-com bined-schedule.p df Plan Of Treatment No Information Medical (General) History Medical History History ICD Code Rheumatoid arthritis M06.9 Ankylosing spondylitis M45.9 Plantar fasciitis M72.2 Degenerative joint disease M19.90 Osteoarthritis M19.90 Hypertension I10 Migraines G43.909
--- OUTSIDE RECORDS SUMMARY | 2025-03-04 08:10 | XMS_ITS | Encounter Summary ---
Author Organization [facility] Address [address] [place] [address] Care Team Providers Care Extension Work Instructor Name Role Phone Nigel Schroeder MD Unavailable [phone] Ailyn Brice MD Primary Care Provider [phone] None, Provider Primary Care Provider Unavaila ble Encounter Details Date Type Department Care Team (Late st Contact Info) Description 09/18/2021 Go Dish Message [facility] [employer], [facility] Provider Patient Amendment Request Social History [...] Sex Assigned at Female 01/24/2019 9:38 AM INTERNATIONAL SPECIALIST Legal Sex Female 10:22 PM INTERNATIONAL SPECIALIST Gender Identity Female 01/24/2019 9:38 AM INTERNATIONAL SPECIALIST Sexual Orientation Straight 01/24/2019 9: 38 AM INTERNATIONAL SPECIALIST 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 [address] [address] PCP - General INTERNAL MEDICINE 08/31/19 02/12/23 None, Provider, PCP - General UNKNOWN PHYSICIAN SPECIALTY 02/13/23 Nigel Schroeder MD [facility]. [address] [address] [place] Horse Exerciser CARDIOVASCULAR DISEASE 09/03/18 documented as of this encounter
--- OUTSIDE RECORDS SUMMARY | 2025-03-04 08:10 | XMS_ITS | Encounter Summary ---
Author Organization [facility] Address [address] [place] [address] Care Team Providers Care Mail List Librarian Name Role Phone Denita Aguila MD Primary Care Provider Unavailab Nigel Zabala MD Unavailable [phone] Ailyn Brice MD Primary Care Provider None, Provider Primary Care Provider Unavaila ble Encounter Details Date Type Department Care Team (Late st Contact Info) Description 10/06/2018 Hospital Orders Only [facility] Cardiopulmonary Services [address] [place] [address] Nigel Schroeder MD [facility]. [place] [address] [place] [address] Social History Tobacco Use Types Packs/Day Years Used Date Smoking Tobacco: Never Smokeless Tobacco: Never Alcohol Use Standard Drinks/Week Comments Yes 0 (1 standard drink = 0.6 oz pur e alcohol) social Comments No Sex and Gender Information Value Date Recorded Sex Assigned at Female 01/24/2019 9:38 AM MILKER MACHINE Legal Sex Female 10:22 PM MILKER MACHINE Gender Identity Female 01/24/2019 9:38 AM MILKER MACHINE Sexual Orientation Straight 01/24/2019 9: 38 AM MILKER MACHINE documented as of this encounter Plan of Treatment Not on file documented as of this encounter Visit Diagnoses Not on filedocumented in this encounter Care Teams Mail List Librarian Relationship Specialty Start Date End Date Denita Aguila MD PCP - General INTERNAL MEDICINE 05/19/18 08/30/19 Ailyn Brice MD [facility]. [address] [address] PCP - General INTERNAL MEDICINE 08/31/19 02/12/23 None, Provider, PCP - General UNKNOWN PHYSICIAN SPECIALTY 02/13/23 [facility] [address] [address] [place] Biochemical Development Engineer CARDIOVASCULAR DISEASE 09/03/18 documented as of this encounter
--- OUTSIDE RECORDS SUMMARY | 2025-03-04 08:10 | XMS_ITS | Encounter Summary ---
Author Organization [facility] Address [address] [place] [address] Care Team Providers Care Senior Statistician Name Role Phone Nigel Schroeder MD Unavailable [phone] Ailyn Brice MD Primary Care Provider None, Provider Primary Care Provider Unavaila ble Encounter Details Date Type Department Care Team (Late st Contact Info) Description 07/30/2020 MyChart Message Enc [facility] W[facility] [address] [place] [address] [place] [address] [place] [address] RE: Follow Up/Update Social History [...] Sex Assigned at Female 01/24/2019 9:38 AM FISHING ROD ASSEMBLER Legal Sex Female 10:22 PM FISHING ROD ASSEMBLER Gender Identity Female 01/24/2019 9:38 AM FISHING ROD ASSEMBLER Sexual Orientation Straight 01/24/2019 9: 38 AM FISHING ROD ASSEMBLER 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 [address] [address] PCP - General INTERNAL MEDICINE 08/31/19 02/12/23 None, Afshan, PCP - General UNKNOWN PHYSICIAN SPECIALTY 02/13/23 Nigel Schroeder MD [facility]. [facility] [address] [place] [address] [place] CARDIOVASCULAR DISEASE 09/03/18 documented as of this encounter
--- OUTSIDE RECORDS SUMMARY | 2025-03-04 08:10 | XMS_ITS | Encounter Summary ---
Author Organization [facility] Address [address] [place], [place] [address] Care Team Providers Care Timber Inspector Name Role Phone Nigel Schrodeer MD Unavailable [phone] Ailyn Brice MD Primary Care Provider [phone] None, Provider MD Primary Care Provider Unavaila ble Encounter Details Date Type Department Care Team (Late st Contact Info) Description 07/27/2020 MyChart Message Enc [facility] Family & Internal Medicine [facility] [address] [place] [phone] Pollo Klein MD [address] [phone] RE: Follow Up/Update Social History [...] Sex Assigned at Female 01/24/2019 9:38 AM HOUSEFELLOW Legal Sex Female 10:22 PM HOUSEFELLOW Gender Identity Female 01/24/2019 9:38 AM HOUSEFELLOW Sexual Orientation Straight 01/24/2019 9: 38 AM HOUSEFELLOW 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 [address] [address] [place] Billet Heater Operator CARDIOVASCULAR DISEASE 09/03/18 documented as of this encounter
--- OUTSIDE RECORDS SUMMARY | 2025-03-04 08:10 | XMS_ITS | Clinical Summary ---
Author Organization [facility] Address [address] [place] [id number] Care Team Providers Care Multi Needle Machine Operator Name Role Phone Nigel Schroeder MD Unavailable [phone] None, Provider Primary Care Provider Unavaila ble [...] Noted Date Diagnosed Date BMI 45.0-49.9, adult 09/28/2019 Scoliosis 08/31/2019 Polycystic ovary syndrome 08/31/2019 Osteoarthritis of back 08/31/2019 History of degenerative disc disease 08/31/2019 Bulging lumbar disc 08/31/2019 Disc narrowing 08/31/2019 External hemorrhoids 04/20/2019 Assessment & Plan (04/20/2019 2:39 PM REED MAKER): Will try hydrocortisone, lidocaine cream, con't sitz bath. If no improvement will refer to GI/gen surg Fibrous dysplasia (monostotic), unspecified site 08/18/2018 Overview (08/18/2018): Of Skull per Dr. Roca Obesity, unspecified classif ication, unspecified obesity type, unspecified whether serious comorbidity present 06/23/2018 Excessive thirst 06/23/2018 Diaphoresis 06/23/2018 Anxiety 05/19/2018 Assessment & Plan (03/25/2019 1:07 PM REED MAKER): Will try increasing the amitriptyline as has [...] anxiety. Assessment & Plan (05/19/2018 4:27 PM REED MAKER): Try sertraline daily as had only been using PRN. Will FU in 1 month. Polyostotic fibrous dysplasia Assessment & Plan (05/19/2018 4:29 PM REED MAKER): Reports not [place] syndorm because no cafe au lait spots. 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 Not on file Not on file Not [...] 11:38 AM CDT Height 162.6 cm (5' 4) 07/06/2020 11:38 AM CDT Body Mass Index 48.75 07/06/2020 11:38 AM CDT Plan of Treatment Health Maintenance Due Date Last Done Comments Cervical Cancer Screening Pa p Smear (Age 30 to 64) Every 3 Years 1990 Annual Physical 1993 Hepatitis C 2008 DTaP, Tdap and Td Vaccines ( 1 - Tdap) 2009 Hepatitis B Vaccines (1 of 3 - 19+ 3-dose series) 2009 HPV Vaccines (1 - 3-dose SCD M series) 2017 Cervical Cancer Screening Pa p with HPV Testing (Age 30 to 64) Every 5 Years 2020 Cervical Cancer Screening wi th HPV 2020 COVID-19 Vaccine (2024-2 6 season) 2024 01/12/2021, 04/11/2020, 03/14/2020 Influenza Adult (#1) 2024 01/12/2021, 01/14/2017 Hepatitis A Vaccines Aged Out No long er eligible based on patient's age to complete this topic Meningococcal B Vaccine Aged Out No l onger eligible based on patient's age to complete this topic Meningococcal Vaccine Aged Out No michael saul eligible based on patient's age to complete this topic Pneumococcal Vaccine: Pediatrics (0 to 5 Years) and At-Risk Patients (6 to 49 Years) Aged Out No longer eligible b ased on patient's age to complete this topic RSV Immunizations Under 20 Months Aged Out No longer eligible b ased on patient's age to complete this topic Insurance [facility] Care Teams Multi Needle Machine Operator Relationship Specialty Start Date End Date None, Provider, PCP - General UNKNOWN PHYSICIAN SPECIALTY 02/13/23 Nigel Schroeder MD [facility]. [address] [place] [address] [employer] Work[employer] CARDIOVASCULAR DISEASE 09/03/18
--- OUTSIDE RECORDS SUMMARY | 2025-03-04 08:11 | XMS_ITS | Data Portability ---
Author Organization [facility], [id number] [facility] Address [address] [place] [address] Assessment Encounter Date Assessment Date Assessment LastModified by Organization Details LastModified Time 05/30/2024 05/30/2024 - discussed routine well woman care bkramper Not available 05/30/2024 11:44:48 Plan of Treatment Reminders Order Date Submit Date Provider Last Modified By Organization Details Last Modified Time Details Appointments ANNUAL- EST 15 2025 10:15A Loreto SHEEHAN WHNP Not available Not available Not available Lab HPV DNA, high-risk - Reflex to genotypin g if HPV Detected 2024 025 [facility] ([facility]), [facility] [address], [place], [address], 06/01/2024 10:10:32 pap, LB 2024 025 [facility] ([facility]), [address] [facility] , [address], [place], [address], 06/01/2024 10:10:31 Referral None recorded. Procedures None recorded. Surgeries None recorded. Imaging None recorded. Medication Orders None recorded. Patient TargetsNo targets recorded. Patient InstructionsNo instructions recorded. Reason for Referral None Reported. Results Created Date Observation Date Name Description Value Unit Range Abnormal Flag Note LastModifiedBy Organization Detail LastModifiedTime 05/31/19 25 06/01/2024 PAP TEST THIN PREP Pap test thin prep Negati ve for Intrae pithel ial Lesion or Malign imelda normal ACCES LOVELY #: 25-[id number] Sourc e: Cervi el/E ndoce rvica l LMP: 5 Date Taken : 05/30 Speci men Type: ThinP rep Vial Date Repor aaron: 2024 Clini el Data: N/a Last Pap: WNL (02/14 ) Cytot ech: Ozzy Harrington r, CT( CP) Date Repor aaron: 2024 Speci men Adequ acy: Satis facto ry for evalu ation Endoc ervic al/tr ansfo rmati on zone compo nent prese nt Gener al Categ oriza tion: NEGAT NICKO FOR INTRA EPITH ELIAL LESIO N OR MALIG MILES This speci men has been arian zed by the ThinP rep Imagi ng Syste m, an inter activ e compu ter syste m which ilan ts the lab in the scree laura of ThinP rep Pap Test slide s. Follo wing imagi ng, the slide was revie wed by a Cytot echno logis t and/o r Patho logis t. Cervi el cytol ogy is a scree laura test prima rily for squam ous cance rs and precu rsors and has assoc iated false -nega tive and false -posi tive resul ts. New techn ologi es such as liqui d-bas ed prepa ratio ns may decre ase but will not elimi roe all false -nega tive resul ts. Regul ar sampl ing and follo w-up of unexp aidee d clini el signs and sympt oms are recom marilu d to minim ize false negat nicko resul ts. D N A A S S A Y S R E P O R T TEST NAME RESUL TS ----- ---- ----- -- HPV High Risk Abby mcclure (TMA) ThinP rep Vial The human papil lomav irus (HPV) High Risk Abby n is an FDA-a pprov ed in-vi tro ampli fied nucle ic acid test for the quali tativ e detec tion of E6/E7 viral mRNA. Resul ts shoul d be corre lated with patie nt prese ntati on, histo ry, cervi el cytol ogy and other clini el and labor atory findi ngs. See https ://Metabolomx/s ites/ defau lt/fi -0 3/AW- 52898 _002_ 01.pd f for fur er infor matio n. Test perfo rmed by [facility] [employer], [employer] d/b/[facility], [address], [place] [address] , Silva Drummond ra, , Labor atory Dire tor, CLIA# [id number] HPV High Risk *HPV NOT DETEC AARON (TYPE S 16, 18, 31, 33, 35, 39, 45, 51, 52, 56, 58, 59, 66, 68) *HPV: The human papil lomav irus (HPV) High Risk Abby mcclure is an FDA-a pprov ed in-vi tro ampli fied nucle ic acid test for the quali tativ e detec tion of E6/E7 viral mRNA. Resul zay sierra d be corre lated with patie nt prese ntati on, histo ry, cervi el cytol ogy and other clini el and labor atory findi ngs. See https ://Metabolomx/s ites/ defau lt/fi -0 3/AW- 74310 _002_ 01.pd f for [facility] er infor matio n. Test perfo rmed by [facility] [employer] d/b/a [facility], [address], [facility] [place] [address] , Silva Drummond ra, , Labor atory Dire tor, CLIA# [id number] End of Repor t Techn ical servi hannah provi ded by [facility] [employer], [employer], d/b/a [facility], [address] [facility] [place] [address] Loraine garzon MD, Labor [employer] tor. Case revie wed and diagn osis rende red at [facility] iated Patho logis ts, [facility], d/b/a [facility] wrightdenisa, [address] [place] [address] Loraine garzon MD, Labor [employer] [facility] tor. CONFI DENTI AL Not Available [facility] ([facility]) [address] [facility] [address], [place], [address], 06/01/2024 10:10:31 05/31/19 25 05/31/2024 HPV HIGH RISK SCREE N (TMA) HPV high risk NOT DETECT ED normal Not Available [facility] ([facility]) [address] [facility] [address], [place], [address], 06/01/2024 10:10:32 Result Notes None recorded. 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 20011220 Active Bulging lumbar disc, Problem Code: 722.10; Problem Code Type: ICD-9; Not Available [facility] 5 12:38:44 Degenerat nicko disc disease NOS Active Degenerati ve Disc Disease, Problem Code Descriptio n: 'Degenerat nicko Disc Disease'; Problem Code Type: 'ICD-9'; Problem Code: '722.52'; Not Available [facility] 5 12:38:44 Idiopathi c scoliosis AND/OR kyphoscol iosis Active Scoliosis, Problem Code: 737.30; Problem Code Type: ICD-9; Not Available [facility] 5 12:38:44 Polycysti c ovaries Active Polycystic ovarian syndrome, Problem Code: 256.4; Problem Code Type: ICD-9; Not Available [facility] 5 12:38:45 Anxiety 20742269 Active 2024 Anders Padilla null, [place] - [facility] 5 08:26:25 Arthritis 8690243 Active 2024 [place] [facility] 5 08:26:40 Prolapsed lumbar intervert ebral disc 789077797 Active 2024 Anders [place] [facility] 5 08:26:57 Degenerat ion of spine 078525534 Active 2024 Anders [place] [facility] 5 08:27:16 Migraine 43496307 Active 2024 [place] [facility] 5 08:27:36 Osteoarth ritis 616037444 Active 2024 [place] [facility] 5 08:27:55 Polycysti c ovary syndrome 715392431 Active 2024 [place] [facility] 5 08:28:08 Scoliosis deformity of spine 227073610 Active 2024 [place] [facility] 5 08:28:15 Polyostot ic fibrous dysplasia of bone 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 Procedures Surgical History Date Name Laterality Status Provider Name and Address Organization Details Recorded Time 02/15/20 20 Date of Last Pap Smear completed Anders Padilla [place] - [facility] 05/27/2024 08:29:10 12/24/19 17 Remove intrauterine device completed Not Available [facility] 07/14/2024 16:02:34 intrauterine contraceptive device procedure completed Anders Padilla [place] [facility] 05/27/2024 08:44:55 Etonogestrel implant system completed Anders Padilla [facility] 05/27/2024 08:45:20 Insert contraceptive cap completed Not Available [facility] 16:02:33 Remove contraceptive capsule completed Not Available [facility] 07/14/2024 16:02:34 Constance, 13.5 mg completed Not Available [facility] 07/14/2024 16:02:34 Kyleena, 19.5 mg completed Not Available [facility] 07/14/2024 16:02:34 extraction of wisdom tooth completed Not Available [facility] 07/14/2024 16:02:34 Imaging Results None recorded. Procedure Notes None recorded. Medical Equipment None Reported. Allergies Allergen ID Allergen Name Allergen Category Reaction Reaction Severity Criticality Documentation Date Start Date Code Code System Note Provider Name and Address Organization Details Recorded Time 117871 Topamax medicatio n Not available Not available Not available 05/27/2024 79282 3 RxNorm Anders [facility] 08:26:07 082944 diphenhyd ramine hydrochlo ride medicatio n Not available Not available Not available 07/14/2024 1362 RxNorm NOTE: - Phree fany 08/27 - Phree fany 01/25 REACT ION: Dizzi ness or light heade dness , Heada ches, Nause a, Other Dizzi ness or light heade dness , Other Heada ches, Other Nause a, Other Vomit ing, Vomit ing Not Available [facility] 13:27:28 Medications Name Sig Start Date Stop Date Status Note LastModified by Organization Details LastModified Time celecoxib 200 mg capsule active Not Available Not Available Not Available prednisone 5 mg tablet TAKE 10MG (2 TABLETS) DAILY FOR 7 DAYS. THEN TAKE 5MG (1 TABLET) DAILY FOR 7 DAYS. 05/30 completed Not Available Not Available Not Available phentermine 37.5 mg tablet 37.5 MG ORALLY DAILY MUST ADMINISTE R 30 MINUTES BEFORE OR 1-2 HOURS AFTER BREAKFAST 05/30 completed Not Available Not Available Not Available methylpredn isolone 4 mg tablets in a dose pack TAKE 6 TABLETS ON DAY 1 DIRECTED ON PACKAGE AND DECREASE BY 1 TAB EACH DAY FOR A TOTAL OF 6 DAYS 05/30 completed Not Available Not Available Not Available pregabalin 50 mg capsule TAKE 1 CAPSULE BY MOUTH TWICE A DAY 05/30 completed Not Available Not Available Not Available Cimzia 400 mg/2 mL (200 mg/mL x 2) subcutaneou s syringe kit active Not Available Not Available Not Available baclofen 5 mg tablet 05/30 completed Not Available Not Available Not Available Ubrelvy 100 mg tablet TAKE 1 TAB ORALLY ONCE A SINGLE DOSE MAY REPEAT ONCE IN >=2 HOURS AFTER FIRST DOSE IF NEEDED active Not Available Not Available No t Available Zepbound 10 mg/0.5 mL subcutaneou s pen injector 10 MG (0.5 ML) SUBCUTANE OUSLY WEEKLY active Not Available Not Available No t Available Zepbound 5 mg/0.5 mL subcutaneou s pen injector INJECT 5 MG (0.5 ML) SUBCUTANE OUSLY WEEKLY 05/30 completed Not Available Not Available Not Available Zepbound 2.5 mg/0.5 mL subcutaneou s pen injector 2.5 MG (0.5 ML) SUBCUTANE OUSLY WEEKLY FOR 4 WEEKS 05/30 completed Not Available Not Available Not Available Zepbound 7.5 mg/0.5 mL subcutaneou s pen injector INJECT 7.5 MG (0.5 ML) SUBCUTANE OUSLY WEEKLY 05/30 completed Not Available Not Available Not Available Vitals Date Recorded Body height Body mass index (BMI) Body weight Systolic And Diastolic Provider Name and Address Organization Details Last Updated DateTime 05/30/2024 162.56 cm 40.2 kg/m2 674844.61 g 124/68 mm[Hg] Anders Padilla [facility] 05/30/2024 11:31:41 Social History Question Answer Notes LastModified by Organizat ion Details LastModified Time Tobacco Smoking Status Never Smoker Anders Padilla [facility] 05/30/2024 11:31:59 Do You Have An Advance Directive? No Information not available 05/30/2024 If You Are , What Was Your Level Of Alcohol Consumption Prior To ? None Information not available 05/30/2024 What Is Your Level Of Caffeine Consumption? Occasional Information not available 05/30/2024 What Type Of Diet Are You Following? REGULAR Information not available 05/30/2024 How Many Times Per Week Do You Exercise? Less Than 1 Time Per Week Note: - [employer]rees[employer] 08/27/2020 SocialHisto ryQuestion: 'Minimal Amount Of Exercise (Once Weekly Or Less)'; Information not available 07/14/2024 What Is Your Relationship Status? Other Note: Information not available 07/14/2024 Sex: Unknown Functional Status Question Answer Note LastModified by Organizat ion Details LastModified Time Do you use any illicit or recreational drugs? No Information not available 07/14/2024 What is your level of alcohol consumption? Occasional Information not available 05/30/2024 Are you currently employed? Yes Information not available 05/30/2024 What is your occupation? Note: [email or web address] Information not available 07/14/2024 Mental Status None recorded. Family History Relationship Description Onset Age of this Age Resolved Age Notes LastModified by Organization Details LastModified Time Maternal Grandmother Blood clots in membranes [email or web address] Not available 11:21:16 Maternal Grandmother Malignant neoplasm of skin [email or web address]-27 Not available 2024 11:21:16 Maternal Grandmother Depressive disorder [email or web address] Not available 2024 08:31:27 Maternal Grandmother Diabetes mellitus [email or web address] Not available 2024 08:31:51 Maternal Grandmother Malignant neoplasm of breast [email or web address] Not available 2024 08:32:26 Maternal Grandmother Fibromyalgia API-27 Not available 0 05/30/2024 11:21:16 Maternal Grandmother Hypertensive disorder [email or web address] Not available 2024 08:33:58 Maternal Grandmother Osteoporosis [email or web address] Not available 05/27/2024 08:35:21 Maternal Grandmother Family history of stroke API-27 Not available 2024 11:21:16 Maternal Grandfather Malignant neoplasm of oral cavity API-27 Not available 05/14 11:21:16 Maternal Grandfather Malignant neoplasm of colon [email or web address] Not available 2024 08:31:09 Maternal Grandfather Depressive disorder [email or web address] Not available 2024 08:31:27 Maternal Grandfather Diabetes mellitus [email or web address] Not available 2024 08:31:51 Maternal Grandfather Hypertensive disorder [email or web address] Not available 2024 08:33:58 Maternal Grandfather Parkinson's disease API-27 Not available 2024 11:21:16 Maternal Aunt Diabetes mellitus [email or web address] Not available 2024 08:31:51 Maternal Aunt Fibromyalgia API-27 Not available 05/30/2024 11:21:16 Mother Diabetes mellitus [email or web address] Not available 2024 08:31:51 Mother Lupus erythematosu s API-27 Not available 2024 11:21:16 Mother Sj gren's syndrome [email or web address]-27 Not available 2024 11:21:16 Mother Polycystic ovary API-27 Not available 2024 11:21:16 Paternal Grandmother Hypercholest erolemia [email or web address] Not available 2024 08:32:14 Paternal Grandmother Heart disease [email or web address] Not available 2024 08:33:30 Paternal Grandmother Hypertensive disorder [email or web address] Not available 2024 08:33:58 Paternal Grandmother Mitral valve prolapse API-27 Not available 2024 11:21:16 Paternal Grandmother Osteoporosis [email or web address] Not available 05/27/2024 08:35:21 Father Genetic disease [email or web address] Not available 2024 11:21:16 Father Osteoporosis [email or web address] Not avai lable 05/27/2024 08:35:21 Paternal Grandfather Kidney disease [email or web address] Not available 2024 08:34:18 Paternal Grandfather Osteoporosis mwuebbels Not available 05/27/2024 08:35:21 Paternal Grandmother Mixed hypercholest erolemia and hypertriglyc eridemia Elevat ed Choles terol/ Trigly ceride s Not available 07/14/2024 15:47:10 Paternal Grandmother History taken NOS Other Mom-Sj ogrens , raynau ds, cervic al dyspla fany, Miguel A Danlos syndro me osteoa rthrit is. MGF- osteoa rthrit is, left bundle branch block, hydroc ephalu s aquedu ctal stenos is, skin cancer Father - sleep apnea, degene rative disc diseas e, osteoa rthrit is PGMA-B ladder Cancer Not available 07/14/2024 15:47:11 Paternal Grandmother Depressive disorder Depres lovely Not available 07/14/2024 15:47:12 Father History taken NOS Other Mom-Sj socorrorens , raynau ds, cervic al dyspla fany, Miguel A Danlos syndro me osteoa rthrit is. MGF- osteoa rthrit is, left bundle branch block, hydroc ephalu s aquedu ctal stenos is, skin cancer Father - sleep apnea, degene rative disc diseas e, osteoa rthrit is PGMA-B ladder Cancer Not available 07/14/2024 15:47:10 Father Hereditary disease Geneti c Disord er Degene rative Disc Diseas e Not available 07/14/2024 15:47:12 Father Family history of amyotrophic lateral sclerosis ALS Not available 2024 15:47:14 Maternal Grandfather History taken NOS Other Mom-Sj socorrorens , raynau ds, cervic al dyspla fany, Miguel A Danlos syndro me osteoa rthrit is. MGF- osteoa rthrit is, left bundle branch block, hydroc ephalu s aquedu ctal stenos is, skin cancer Father - sleep apnea, degene rative disc diseas e, osteoa rthrit is PGMA-B ladder Cancer Not available 07/14/2024 15:47:10 Maternal Grandfather Type 2 diabetes mellitus without complication DM Type II Proble m Code: 250.00 ; Proble m Code Type: ICD-9; Not available 07/14/2024 15:47:12 Maternal Grandfather Malignant neoplastic disease Cancer Mouth and skin Not available 07/14/2024 15:47:13 Maternal Grandfather Osteoporosis Osteop orosis Not available 07/14/2024 15:47:15 Maternal Grandmother History taken NOS Other Mom-Sj ogrens , raynau ds, cervic al dyspla fany, Miguel A Danlos syndro me osteoa rthrit is. MGF- osteoa rthrit is, left bundle branch block, hydroc ephalu s aquedu ctal stenos is, skin cancer Father - sleep apnea, degene rative disc diseas e, osteoa rthrit is PGMA-B ladder Cancer Not available 07/14/2024 15:47:10 Maternal Grandmother Cerebrovascu lar accident Stroke Not available 03/2024 15:47:11 Maternal Grandmother Fibromyositi s Fibrom yalgia Not available 07/14/2024 15:47:11 Maternal Grandmother Type 2 diabetes mellitus without complication DM Type II Proble m Code: 250.00 ; Proble m Code Type: ICD-9; Not available 07/14/2024 15:47:12 Maternal Grandmother Malignant neoplastic disease Cancer Mouth and skin Not available 07/14/2024 15:47:13 Maternal Grandmother Family history of breast cancer Family histor y of breast cancer Not available 07/14/2024 15:47:14 Maternal Grandmother Blood coagulation disorder Blood Clots Not available 07/14/2024 15:47:15 Mother History taken NOS Other Mom-Sj ogrens , raynau ds, cervic al dyspla fany, Miguel A Danlos syndro me osteoa rthrit is. MGF- osteoa rthrit is, left bundle branch block, hydroc ephalu s aquedu ctal stenos is, skin cancer Father - sleep apnea, degene rative disc diseas e, osteoa rthrit is PGMA-B ladder Cancer Not available 07/14/2024 15:47:10 Mother Type 2 diabetes mellitus without complication DM Type II Proble m Code: 250.00 ; Proble m Code Type: ICD-9; Not available 07/14/2024 15:47:12 Mother Systemic lupus erythematosu s Lupus Not available 2024 15:47:14 Mother Osteoporosis Osteop orosis Not available 07/14/2024 15:47:15 Mother Polycystic ovaries Polycy stic Ovarie s Not available 07/14/2024 15:47:16 Paternal Grandfather History taken NOS Other Mom-Sj ogrens , alexsandra ds, cervic al dyspla fany, Miguel A Danlos syndro me osteoa rthrit is. MGF- osteoa rthrit is, left bundle branch block, hydroc ephalu s aquedu ctal stenos is, skin cancer Father - sleep apnea, degene rative disc diseas e, osteoa rthrit is PGMA-B ladder Cancer Not available 07/14/2024 15:47:11 Paternal Grandfather Kidney stone Kidney Stones Not available 07/14/2024 15:47:17 Unspecified Relation Fibromyositi s Fibrom yalgia Relati ve: 'Aunt' ; Not available 07/14/2024 15:47:11 Unspecified Relation Diabetes mellitus Diabet es Clinic al Reconc iliati on Feb 14 2020 3:05PM : Alexsandra barfield Diabet es- mother Relati ve: 'Aunt' ; Not available 07/14/2024 15:47:16 Medical History Condition Response Psych- Anxiety Disorder Y Ortho-Other Y Ortho- Arthritis Y Cancer- Genetic screening Neurology- Headaches/Migraines Y Rheumatology- Arthritis Y Gynecological History Statement/Question Response Flow Heavy History of Fibroids N Date of LMP 05/20/2024 History of Recurrent Ovarian Cysts N Post Menopausal Hormone Therapy User Nev er HPV Vaccine Completed Date of Last Diabetes Screening 05/15/19 25 Date of Last Cholesterol Screening 05/14 14 History of PCOS Y History of Infertility N History of Cervical Dysplasia N History of Vulvar Dysplasia N Duration of Flow (days) 5 Current Control Method Age at Menarche 15 History of Endometriosis N Sexually Active? Y History of Dysmenorrhea N Menses Monthly Y Date of Last Pap Smear 02/15/2020 Sexual Problems? N History of Sexually Transmitted Infectio n N Date of Last Bone Density 2018 Obstetrics History GPAL:G 0 P 0 0 0 0 Type Value Multiple Births 0 Full Term 0 Induced 0 Spontaneous 0 Premature 0 Living 0 Ectopics 0 Total 0 Past Encounters Encounter ID Performer Location Encounter Start Date Encounter Closed Date Diagnosis/Indication Diagnosis SNOMED-CT Code Diagnosis ICD10 Code Diagnosis IMO Codes Diagnosis Note [id number] ROWENA RG RD, MD [id number] [facility] _[facility] [address] [facility] [address] [address] 05/30/2024 11:02:46 05/30/2024 11:53:45 Screening for malignant neoplasm of cervix 305756445 Z12.4 Human brandy lloma virus screening 080799079 Z11.51 Gynecologi c examination 99638864 Z01.419 Contracept ion care management 142929845 Z30.9 Health Concerns Section Related Observation LastModified by Organization Detai ls LastModified Time None Recorded Concern Status LastModified by Organization Details LastModified Time None Recorded Advance Directives Directive N: Payers Insurance Date Sequence Insurance Name Policy Number Policy Mario Covered Member ID Mario Member ID Guarantor Name 05/30/2024 1 [facility] [employer] (PPO) [id number] Angelita James [id number] Angelita James Notes Date Note Type Note Provider Name and Address Organization Details Recorded Time 05/30/2024 text/html Patient presents for ANNUAL EXAM This is an established patient Interval history/concerns/i ssues: none Menstrual - Concerns: no - Timing: regular - Duration: days - Flow: average - Cramps: mild - Other: Sexual - Active: yes, male - Current number of partners: 1 - Number of parters in the past year: - Desires STI testing no Contraception - Method: none, not interested - Concerns: none Discharge: Pelvic pain: no Other: Health Maintenance Pap: - Date: 2019 - Result: Mammo: - Date: - Result: Colonoscopy: - Date: - Result: DEXA: - Date: - Result: ROS: Negative, except as stated in HPI Notes: AUDREY SHEEHAN [facility] [address], [place], [address], [place] - [facility] 05/30/2024 14:37:37 OBGyn Episode No OBEpisode recorded.
== END 2025-03-04 08:06 | disposition home or self-care (01) ==
LOC: CHSIMG 08:09
PROVIDERS: PCP Nurse Practitioner Adult Health; Visit Provider Orthopaedic Surgery
DX: M77.11 Lateral epicondylitis, right elbow (principal)
CPT/HCPCS: 73221